=== PATIENT | female | born 1985 | race African-American/Black ===

== ENCOUNTER 2017-12-31 02:31 | Emergency (ER) | payer BC, OTHER ==
[~2017-12-31] VITALS: Ht 165.1 cm; Wt 147.4 kg
[~2017-12-31 02:31] MED LIST: BUSP15TA PO; ESCI20TA10 PO; HYDR25TA11 PO; [UNRECOGNIZED DRUG - OTHER] PO
[2017-12-31 02:33] VITALS: BP 146/87
[2017-12-31] MEDS ORDERED: MULTIVITAMIN (02:37)
[2017-12-31 03:03] LABS: HCG UR SG 1.004 (1.003-1.030); MICROSCOPIC AUTO
[2017-12-31 03:05] LABS: CULTURE INDICATED? YES
== END 2017-12-31 03:56 | disposition home or self-care (01) ==
LOC: ED 03:29
DX: R35.0 Frequency of micturition (principal); M54.5 Low back pain
CPT/HCPCS: 81001; 81025; 82962; 87086; 99284